=== PATIENT | female | born 1990 | race Caucasian/White ===

== ENCOUNTER 2016-07-03 23:49 | Emergency (ER) | payer SELFPAY ==
[~2016-07-03] VITALS: Ht 152.4 cm; Wt 67.0 kg
[2016-07-03 23:52] VITALS: Ht 152.4 cm; Wt 67.0 kg
== END 2016-07-04 01:46 | disposition left against medical advice (07) ==
LOC: FTE 23:49
DX: Z53.21 Procedure and treatment not carried out due to patient leaving prior to being seen by health care provider (principal)

== ENCOUNTER 2018-06-09 13:30 | Emergency (ER) | payer SELFPAY ==
[~2018-06-09] VITALS: Ht 162.6 cm; Wt 75.0 kg
[2018-06-09 14:01] VITALS: BP 148/80; PULSE 68; RESP 16; Ht 162.6 cm; Wt 75.0 kg
[2018-06-09] MEDS ORDERED: NITR-58 PO (15:13)
--- NOTE | 2018-06-09 15:35 | ERD ---
ER Documentation Chief Complaint Chief Complaint PELVIC PAIN WITH POSS DYSURIA HPI 28-year-old female presenting with pelvic pain and dysuria. She states that she has frequency and burning with urination. Patient states is been going on for the last 4 days. No hematuria. No back pain. No fevers. Denies other medical problems. Allergy to Bactrim. Surgical history denies. Social history denies ROS All systems reviewed and are negative except as per history of present illness. Medications Home Meds Active Scripts Nitrofurantoin Monohyd Macrocr* (Macrobid*) 100 Mg Capsr, 100 MG PO BID for 14 Days, CAP Prov:FLEX COREAS PA-C 06/09/18 Allergies Allergies: Coded Allergies: sulfamethoxazole (Verified Allergy, Intermediate, SWELLING, 05/04/14) PMhx/Soc Medical and Surgical Hx: pt denies Medical Hx, pt denies Surgical Hx FmHx Family History: No diabetes, No coronary disease, No other Physical Exam Vitals Vital Signs Date Temp Pulse Resp B/P (MAP) Pulse Ox O2 O2 Flow FiO2 Time Delivery Rate 06/09/18 98.6 68 16 148/80 96 14:01 (102) Physical Exam GENERAL: The patient is well-appearing, well-nourished, in no acute distress CHEST: Clear to auscultation bilaterally. There are no rales, wheezes or rhonchi. HEART: Regular rate and rhythm. No murmurs, clicks, rubs or gallops. No S3 or S4. ABDOMEN:Soft, nontender and nondistended. Good bowel sounds. No rebound or guarding. No gross peritonitis. No gross organomegaly or masses. BACK: No midline or flank tenderness. Results 24 hrs Laboratory Tests Test 06/09/18 15:00 06/09/18 15:02 Bedside Urine pH (LAB) 6.0 Bedside Urine Protein (LAB) Negative Bedside Urine Glucose (UA) Negative Bedside Urine Ketones (LAB) Negative Bedside Urine Blood Negative Bedside Urine Nitrite (LAB) Negative Bedside Urine Leukocyte Esterase (L Trace POC Beta HCG, Qualitative NEGATIVE Procedures/MDM MDM: 28-year-old female presenting with dysuria. Patient's urine shows infection will be treated with antibiotics. I have low suspicion for pyelonephritis or pelvic infection. I have low suspicion for acute abdominal emergency. Patient is discharged stricter precautions and told to follow-up wit h primary care within 1-2 days for close evaluation. Patient is told symptoms change or worsen to return to the ER immediately. All questions answered at discharge Departure Diagnosis: Primary Impression: Dysuria Condition: Stable Patient Instructions: Dysuria Referrals: [facility] YOU HAVE RECEIVED A MEDICAL SCREENING EXAM AND THE RESULTS INDICATE THAT YOU DO NOT HAVE A CONDITION THAT REQUIRES URGENT TREATMENT IN THE EMERGENCY DEPARTMENT. FURTHER EVALUATION AND TREATMENT OF YOUR CONDITION CAN WAIT UNTIL YOU ARE SEEN IN YOUR DOCTORS OFFICE WITHIN THE NEXT 1-2 DAYS. IT IS YOUR RESPONSIBILITY TO MAKE AN APPOINTMENT FOR FOLOW-UP CARE. IF YOU HAVE A PRIMARY DOCTOR --you should call your primary doctor and schedule an appointment IF YOU DO NOT HAVE A PRIMARY DOCTOR YOU CAN CALL OUR PHYSICIAN REFERRAL HOTLINE AT IF YOU CAN NOT AFFORD TO SEE A PHYSICIAN YOU CAN CHOSE FROM THE FOLLOWING [facility] [address] [facility] [address] [facility] [id number] [facility] [facility] [address] [facility] [address] [facility] [address] [facility] [facility]. [address] Additional Instructions: FOLLOW UP WITH YOUR PRIMARY CARE PHYSICIAN TOMORROW.Return to this facility if you are not improving as expected. FLEX COREAS PA-C Jun 09, 2018 15:35
== END 2018-06-09 15:27 | disposition home or self-care (01) ==
LOC: FTE 13:30
DX: R30.0 Dysuria (principal)
CPT/HCPCS: 81003; 81025; 99283